=== PATIENT | female | born 1950 | race Caucasian/White ===

== ENCOUNTER 2023-04-13 07:39 | Emergency (ER) | payer OTHER ==
[~2023-04-13] VITALS: Ht 162.6 cm; Wt 155.0 kg
[~2023-04-13 07:39] MED LIST: NAPR-957 PO
[2023-04-13 08:10] LABS: Basophils # (auto) 0.1 10 ^3/uL (0-0.2); Basophils % (auto) 0.8 % (0.0-2.0); Eosinophils # (auto) 0.2 10 ^3/uL (0-0.8); Eosinophils % (auto) 2.2 % (0.0-7.0); Hemoglobin 14.8 g/dL (12.2-16.2); Lymphocytes # (auto) 1.3 10 ^3/uL (0.4-5.4); Lymphocytes % (auto) 15.1 % (10.0-50.0); Mean Corpuscular Hemoglobin 31.1 pg (28.0-32.0); Mean Corpuscular Hgb Conc. 33.6 g/dL (32.0-36.0); Mean Corpuscular Volume 92.4 fL (80.0-100.0); Monocytes # (auto) 0.7 10 ^3/uL (0-1.3); Monocytes % (auto) 7.8 % (0.0-12.0); Neutrophils # (auto) 6.4 10 ^3/uL (1.6-8.6); Neutrophils % (auto) 74.1 % (37.0-80.0); Red Blood Cells 4.76 10^6/uL (4.0-5.20); Red Cell Distribution Width 14.3 % (11.8-14.3); White Blood Cell 8.6 10^3/uL (4.4-10.8)
[2023-04-13 08:55] LABS: Albumin 3.4 g/dL (3.4-5.0); Calcium 9.1 mg/dL (8.5-10.1); Magnesium 2.5 mg/dL (1.6-2.6); Potassium 4.7 mmol/L (3.5-5.1)
[2023-04-13 08:59] LABS: BUN/Creatinine Ratio 23.9 (10.0-20.0); Bilirubin, Total 0.6 mg/dL (0.2-1.0); Total Protein 6.2 g/dL (6.4-8.2)
[2023-04-13] MEDS ORDERED: MAALOX PLUS or MAALOX 30 ML PO ONE (10:30)
[2023-04-13] MEDS ORDERED: DONNATAL 5ml ORAL Elix (BELLADONNA ALK-PHENOBARB) PO ONE (10:30)
[2023-04-13] MEDS ORDERED: LIDOCAINE VISCOUS 2% 15ML UD PO ONE (10:30)
[2023-04-13 12:56] VITALS: BP 108/72; PULSE 68; RESP 19; TEMP 99; O2SAT 97
== END 2023-04-13 12:59 | disposition home or self-care (01) ==
LOC: ER 07:39 → EDBD 07:39 → ER 12:57
DX: R07.89 Other chest pain (principal); E78.5 Hyperlipidemia, unspecified; I10 Essential (primary) hypertension; F17.210 Nicotine dependence, cigarettes, uncomplicated; Z98.890 Other specified postprocedural states; Z79.899 Other long term (current) drug therapy
CPT/HCPCS: 36415; 71045; 80053; 83735; 84484; 85025; 93005

== ENCOUNTER 2025-02-06 08:13 | Emergency (ER) | payer OTHER ==
[~2025-02-06] VITALS: Ht 162.6 cm; Wt 54.5 kg
[2025-02-06 08:43] VITALS: TEMP 98.1; O2SAT 95
[2025-02-06 09:16] LABS: Basophils # (auto) 0 10 ^3/uL (0-0.2); Basophils % (auto) 0.1 % (0.0-2.0); Eosinophils # (auto) 0 10 ^3/uL (0-0.8); Eosinophils % (auto) 0.1 % (0.0-7.0); Hematocrit 33.2 % (36.0-46.0); Hemoglobin 11.1 g/dL (12.2-16.2); Lymphocytes # (auto) 0.3 10 ^3/uL (0.4-5.4); Lymphocytes % (auto) 1.8 % (10.0-50.0); Mean Corpuscular Hemoglobin 28.7 pg (28.0-32.0); Mean Corpuscular Hgb Conc. 33.3 g/dL (32.0-36.0); Monocytes # (auto) 0.8 10 ^3/uL (0-1.3); Monocytes % (auto) 4.3 % (0.0-12.0); Neutrophils # (auto) 17.2 10 ^3/uL (1.6-8.6); Neutrophils % (auto) 93.7 % (37.0-80.0); Platelet Count (auto) 103 10^3/uL (140-450); Red Blood Cells 3.86 10^6/uL (4.0-5.20); Red Cell Distribution Width 19.6 % (11.8-14.3); White Blood Cell 18.4 10^3/uL (4.4-10.8)
--- NOTE | 2025-02-06 09:30 | ED.PDOC ---
GI ASSESSMENT HPI Comments 75 year old female [place] presents to the ED with chief complaint of abdominal pain. Patient reports that she has been experiencing RUQ abdominal pain for the past 3 days, but has also had abdominal distention, difficulty voiding, and constipation for some time. Patient relays that she has pancreatic cancer and had been scheduled with Bracey Steven today to have a paracentesis performed, but she could not take the pain today. patient notes having a new stent placed which relieved her symptoms for some time, but she progressively got worse after. Patient states she has taken Berger for pain management with little relief noted. Patient denies any N/V/D, chest pain, dysuria, hematuria, or melena. Chief Complaint: Abdominal Pain Time Seen by MD: 09:20 Primary Care Provider: Dain Reviewed Notes: Nurses Notes, Medications, Allergies Allergies: Coded Allergies: NO KNOWN ALLERGIES (Unverified , 07/17/15) Home Meds Reported Medications Naproxen (Naproxen) 375 Mg Tab, 1 TAB PO BID, #60 TAB 1 Refill 07/18/15 Information Source: Patient Mode of Arrival: EMS Timing: Days Duration: Since onset Prehospital treatment: None Quality: Sharp Vomitus: None Stool: Impaction Severity: Moderate Recent: None Recent Hx of: None Pain Location: RUQ Modifying Factors: Nothing Associated sign and symptoms: Constipation, Abdominal Pain, Fever Past Medical History PAST MEDICAL HISTORY: Cancer (Pancreatic cancer), High Lipids, HTN Past Medical History (Other): AAA Surgical History: PTCA CHARGE COORDINATOR History: Denies all CHARGE COORDINATOR Hx Family History Family History: Unobtainable Social History Smoker: Non-Smoker, Quit Less Than 1 Year Alcohol: Denies ETOH Use Drugs: Denies Drug Use Lives In: Home Constitutional: reports: fever; denies: chills, diaphoresis, fatigue, malaise, sweats, weakness, others EENTM: denies: blurred vision, double vision, ear bleeding, ear discharge, ear drainage, ear pain, ear ringing, eye pain, eye redness, hearing loss, mouth pain, mouth swelling, nasal discharge, nose bleeding, nose congestion, nose pain, photophobia, tearing, throat pain, throat swelling, voice changes, others Respiratory: denies: cough, hemoptysis, orthopnea, SOB at rest, shortness of breath, SOB with excertion, stridor, wheezing, others Cardiovascular: denies: chest pain, dizzy spells, diaphoresis, Dyspnea on exertion, edema, irregular heart beat, left arm pain, lightheadedness, p alpitations, PND, syncope, others Gastrointestinal: reports: abdomen distended, abdominal pain, constipated; denies: blood streaked bowels, diarrhea, dysphagia, difficulty swallowing, hematemesis, melena, nausea, poor appetite, poor fluid intake, rectal bleeding, rectal pain, vomiting, others Genitourinary: reports: others (Difficulty voiding); denies: abnormal vagina bleeding, burning, dyspareunia, dysuria, flank pain, frequency, hematuria, incontinence, pain, , vagina discharge, urgency Neurological: denies: dizziness, fainting, headache, left sided numbness, left sided weakness, numbness, paresthesia, pre-existing deficit, right sided numbness, right sided weakness, seizure, speech problems, tingling, tremors, weakness, others Musculoskeletal: denies: back pain, gout, joint pain, joint swelling, muscle pain, muscle stiffness, neck pain, others Integumetry: denies: bruises, change in color, change in hair/nails, dryness, laceration, lesions, lumps, rash, wounds, others Allergic/Immunocompromised: denies: Difficulty Healing, Frequent Infections, Hives, Itching, others Hematologic/Lymphatic: denies: anemia, blood clots, easy bleeding, easy brui sing, swollen glands, others Endocrine: denies: excessive hunger, excessive sweating, excessive thirst, ex cessive urination, flushing, intolerance to cold, intolerance to heat, unexplained weight gain, unexplained weight loss, others Psychiatric: denies: anxiety, bipolar disorder, depression, hopeless, panic disorder, schizophrenia, sleepless, suicidal, others All Other Systems: Reviewed and Negative Physical Exam General Appearance: No Apparent Distress, Normal HEENT: Normal ENT Inspection, Pharynx Normal, TMs Normal Neck: Full Range of Motion, Non-Tender, Normal, Normal Inspection Respiratory: Chest Non-Tender, Lungs Clear, No Accessory Muscle Use, No Respiratory Distress, Normal Breath Sounds Cardiovascular: No Edema, No JVD, No Murmur, No Gallop, Normal Peripheral Pulses, Regular Rate/Rhythm Breast Exam: Deferred Gastrointestinal: No Organomegaly, No Pulsatile Mass, Normal Bowel Sounds, Soft, Other (Protuberant Abdomen) Genitalia: Deferred Pelvic: Deferred Rectal: Deferred Extremities: No calf tenderness, Normal capillary refill, Normal inspection, Normal range of motion, Non-tender, No pedal edema Musculoskeletal : Apperance: Normal Neurologic: Alert, car head liner installer II-XII nml as Tested, No Motor Deficits, Normal Affect, Normal Mood, No Sensory Deficits Cerebellar Function: Normal Reflexes: Normal Skin: Dry, Normal Color, Warm Lymphatic: No Adenopathy Was a procedure done? Was a procedure done?: No GI differential Dx Differential Diagnosis: AAA, Angina/[place], Cholecystitis, Dysmenorrhea, Gastritis/PUD, Gastroenteritis, GI hemorrhage, UTI, Urolithiasis, Dehydration, Electrolyte Imbalance, Food Poisoning, Bacterial X-Ray, Labs, Meds, VS Vital Signs Date Time Temp Pulse Resp B/P (MAP) Pulse Ox O2 Delivery O2 Flow Rate FiO2 02/06/25 09:52 89 12 106/74 02/06/25 09:40 Room Air* 0 21 02/06/25 08:43 98.1 89 12 106/74 (85) 95 98.1 02/06/25 08:23 98.1 98 20 112/63 (79) 96 98.1 Lab Test 02/06/25 08:50 Range/Units White Blood Count 18.4 H 4.4-10.8 10^3/uL Red Blood Count 3.86 L 4.0-5.20 10^6/uL Hemoglobin 11.1 L 12.2-16.2 g/dL Hematocrit 33.2 L 36.0-46.0 % Mean Corpuscular Volume 86.0 80.0-100.0 fL Mean Corpuscular Hemoglobin 28.7 28.0-32.0 pg Mean Corpuscular Hemoglobin Concent 33.3 32.0-36.0 g/dL Red Cell Distribution Width 19.6 H 11.8-14.3 % Platelet Count 103 L 140-450 10^3/uL Mean Platelet Volume 9.1 6.9-10.8 fL Neutrophils (%) (Auto) 93.7 H 37.0-80.0 % Lymphocytes (%) (Auto) 1.8 L 10.0-50.0 % Monocytes (%) (Auto) 4.3 0.0-12.0 % Eosinophils (%) (Auto) 0.1 0.0-7.0 % Basophils (%) (Auto) 0.1 0.0-2.0 % Neutrophils # (Auto) 17.2 H 1.6-8.6 10 ^3/uL Lymphocytes # (Auto) 0.3 L 0.4-5.4 10 ^3/uL Monocytes # (Auto) 0.8 0-1.3 10 ^3/uL Eosinophils # (Auto) 0 0-0.8 10 ^3/uL Basophils # (Auto) 0 0-0.2 10 ^3/uL Nucleated Red Blood Cells 0.0 % Sodium Level 133 L 136-145 mmol/L Potassium Level 4.9 3.5-5.1 mmol/L Chloride Level 101 98-107 mmol/L Carbon Dioxide Level 27 20-31 mmol/L Anion Gap 5 5-15 Blood Urea Nitrogen 36 H 9-23 mg/dL Creatinine 1.06 H 0.550-1.02 mg/dL Glomerular Filtration Rate Calc 54 >90 mL/min BUN/Creatinine Ratio 34.0 H 10.0-20.0 Serum Glucose 167 H 74-106 mg/dL Lactic Acid Level 1.7 0.4-2.0 mmol/L Calcium Level 9.2 8.7-10.4 mg/dL Total Bilirubin 1.9 H 0.2-1.0 mg/dL Aspartate Amino Transferase (AST) 43 H 13-40 U/L Alanine Aminotransferase (ALT) 79 H 7-40 U/L Alkaline Phosphatase 233 H 46-116 U/L Total Protein 6.0 5.7-8.2 g/dL Albumin 3.1 L 3.2-4.8 g/dL Lipase 19 12-53 U/L Current Medications Medications (Trade) Dose Ordered Sig/Ivy Route Start Time Stop Time Status Last Admin Morphine Sulfate 4 mg ONCE ONCE IV 02/06/25 08:30 02/06/25 08:31 DC 02/06/25 09:52 Ondansetron HCl (Zofran) 4 mg ONCE ONCE IV 02/06/25 08:30 02/06/25 08:31 DC 02/06/25 09:51 Cefepime HCl 50 ml @ 12.5 mls/hr ONCE ONCE IV 02/06/25 09:30 02/06/25 13:29 02/06/25 10:45 Vancomycin HCl 200 ml @ 200 mls/hr ONCE ONCE IV 02/06/25 09:30 02/06/25 10:29 DC 02/06/25 10:45 Time of 1ST Reevaluation: 10:20 Reevaluation 1ST: Unchanged Patient Education/Counseling: Diagnosis, Treatment Family Education/Counseling: No Family Present Additional Information Previous visits reviewed: 04/13/23 for chest pain The following tests were ordered, and results were reviewed by me: CBC, CMP, Lipase, Lactic Additional Information was gathered from interviewing the following independent historians: EMS I reviewed and agreed with the following test results read by other providers: CT Abd/Pel W/ IV Con I discussed treatment and results with medical personnel and: patient Comprehensive systems review obtained and negative except for what is stated in the HPI. Departure 1 Departure Time of Disposition: 12:21 (Bracey authorization to admit a [facility] [id number] presented with abdominal pain that was concerning for possible appendicits, gastritis, cholecystitis, colitis, gastroenteritis, sbo, or orther possible surgical emergency. Data: 1. I ordered and reviewed the result of at least 3 labs including a CBC, BMP, and Urinalysis. 2. I independently interpreted the following tests: CT Abdoment and Pelvis is concerning for intra- abdominal abscess .Risk:This patient has a high risk of morbidity due to further diagnostic testing or treatment and may suffer from an acute abdominal process disorder. Workup reveals intra-abdominal abscess and patient should be admitted for further workup. and possible expert consultation. Patient with volume overload so we will not give a full fluid bolus for sepsis.) Impression: Primary Impression: Hepatic abscess Additional Impressions: Intractable abdominal pain Sepsis Qualified Codes: A41.9 - Sepsis, unspecified organism; R65.20 - Severe sepsis without septic shock; K72.00 - Acute and subacute hepatic failure without coma Disposition: ADMITTED INPATIENT Admit to: Tele Condition: Guarded Critical Care Note Critical Care Time?: Yes Critical care comment: Sepsis Authorized and Performed by: Carmencita Link MD Total critical care time: Approximately 48 minutes Due to a high probability of clinically significant, life threatening deterioration, the patient required my highest level of preparedness to intervene emergently and I personally spent this critical care time directly and personally managing the patient. This critical care time included obtaining a history; examining the patient; pulse oximetry; ordering and review of studies; arranging urgent treatment with development of a management plan; evaluation of patient's response to treatment; frequent reassessment; and, discussions with other providers. This critical care time was performed to assess and manage the high probability of imminent, life-threatening deterioration that could result in multi-organ failure. It was exclusive of separately billable procedures and treating other patients and teaching time. Please see my other sections and the rest of the note for further information on patient assessment and treatment. Stability Stability form required: No Heart Score Heart Score: Heart Score Response (Comments) Value History N/A 0 EKG N/A 0 Age N/A 0 Risk Factors N/A 0 Troponin N/A 0 Total 0 I personally scribed for CARMENCITA LINK MD ([email or web address]) on 02/06/25 at 09:30. Electronically submitted by Chapin Lui ([email or web address]). CARMENCITA LINK MD February 06, 2025 09:30
[2025-02-06 09:33] LABS: Alanine Aminotransferase 79 U/L (7-40); Albumin 3.1 g/dL (3.2-4.8); Alkaline Phosphatase 233 U/L (46-116); Anion Gap 5 (5-15); Aspartate Aminotransferase 43 U/L (13-40); Blood Urea Nitrogen 36 mg/dL (9-23); Calcium 9.2 mg/dL (8.7-10.4); Carbon Dioxide 27 mmol/L (20-31); Chloride 101 mmol/L (98-107); Glucose 167 mg/dL (74-106); Potassium 4.9 mmol/L (3.5-5.1); Sodium 133 mmol/L (136-145)
[2025-02-06 09:34] LABS: Bilirubin, Total 1.9 mg/dL (0.2-1.0)
[2025-02-06 09:48] LABS: Lipase 19 U/L (12-53)
[2025-02-06] MEDS: ONDANSETRON HCL 4 MG/2 ML VIAL IV ONE (09:51)
[2025-02-06 09:52] VITALS: BP 106/74; PULSE 89; RESP 12
[2025-02-06] MEDS: MORPHINE SULFATE 4 MG/ML SYR/VIAL IV ONE (09:52)
[2025-02-06] MEDS: IOHEXOL 300 MG/ML 100ML BOTTLE IJ ONE (10:38)
[2025-02-06] MEDS: CEFEPIME 2GM/50ML NS 50 ML IV ONE (10:45)
[2025-02-06] MEDS: VANCOMYCIN 1GM/200ML PM 200 ML IV ONE (10:45)
--- NOTE | 2025-02-06 11:33 | DVH ---
Procedure: CT CT AB PEL WITH IV CON ONLY 02/06/2025 10:35 AM Indication: abdominal pain Comparison Study: None Technique: Axial images were obtained and reformatted in coronal and sagittal planes. All CT scans at this medical facility are performed using dose modulation techniques as appropriate to a performed e xam including the following: Automated exposure control was utilized; adjustment of the MA and/or KV according to patient size; and use of iterative reconstruction technique. CT Dose: CTDI volume is 9.2 5 mGy. Dose-length product is 490.9 mGy*cm FINDINGS: Right lower lobe subsegmental atelectasis. No pleural effusion. Mild cardiomegaly. Moderately distended gallbladder with gallbladder wall thickening gas in the wall and lumen compatibl e with emphysematous cholecystitis. Large lobular abscess in the right hepatic lobe measuring 12.5 in transverse , 8 cm in craniocaudal and 9 cm in AP extending to portal hepatis abutting the CBD stent. A CBD stent appears patent containing air in its lumen with trace fluid/ debris in and its distal p art. Pneumobilia noted. Few subcentimeter hypodense lesions in the left hepatic lobe, too small to ch aracterize. Hepatic steatosis. Large abdominopelvic ascites. Mild splenomegaly, 12.9 cm in craniocaud al without focal lesion. Markedly atrophic pancreas with pancreatic ductal dilatation measuring 0.8 cm in caliber. No discrete pancreatic lesion is identified. Moderately atrophic right kidney. No hydronephrosis bilaterally. A 3 mm nonobstructing stone in the l ower pole calyx of the left kidney. A subcentimeter simple appearing cyst in the lower pole of the le ft kidney. The urinary bladder is unremarkable. Fusiform aneurysm of infrarenal abdominal aorta measuring 4.4 cm in transverse and 8.2 cm in length a mural hematoma anteriorly and left laterally measuring 1.8 cm in thickness. No dissection noted. Sc attered calcified plaques of the aorta are seen. No evidence of bowel obstruction. Chain suture in te rminal ileum. Scattered colonic diverticula. Small fluid containing right inguinal hernia. Myomatous uterus. No adnexal lesion seen. Multilevel degenerative disc disease and posterior facet arthropathy of the lumbar spine. Mild levoscoliosis at the thoracolumbar junction. Moderate subcutaneous edema i n the lower abdomen on bilateral upper thigh. IMPRESSION: 1. Emphysematous cholecystitis. Recommend surgical consultation. 2. Large, 12.5 x 8 x 9 cm lobular right hepatic lobe abscess. Recommend interventional radiology or surgical consultation for percutaneous drainage. The abscess extends to portal hepatis abutting the C BD stent. The CBD stent appears patent. 3. Large abdominopelvic ascites. Debris noted in the dependent part of pelvic ascites. 4. Fusiform infrarenal abdominal aorta aneurysm with maximal diameter 4.4 cm.Moderately atrophic righ t kidney. 5.
[2025-02-06] MEDS ORDERED: SODIUM CHLORIDE 0.9% 1,000 ML IV ONE (12:30)
== END 2025-02-06 12:49 | disposition left against medical advice (07) ==
LOC: ER 08:13 → EDBD 08:13 → ER 12:35
DX: A41.9 Sepsis, unspecified organism (principal); K75.0 Abscess of liver; R10.31 Right lower quadrant pain; I10 Essential (primary) hypertension; E78.5 Hyperlipidemia, unspecified; C25.9 Malignant neoplasm of pancreas, unspecified; I71.40 Abdominal aortic aneurysm, without rupture, unspecified; Z98.61 Coronary angioplasty status; Z87.891 Personal history of nicotine dependence; Z79.899 Other long term (current) drug therapy
CPT/HCPCS: 36415; 74177; 80053; 83605; 83690; 85025; 87040; 87077; 87186; 96365; 96366; 96368; 96375; 99291; J0692; J2270; J2405; J3370; Q9967